=== PATIENT | male | born 1975 | race Caucasian/White ===

== ENCOUNTER 2018-01-01 09:32 | Emergency (ER) | payer OTHER, MEDICAID ==
[~2018-01-01] VITALS: Ht 175.3 cm; Wt 84.1 kg
[~2018-01-01 09:32] MED LIST: AZIT250T13
[2018-01-01 09:43] VITALS: BP 143/92
--- NOTE | 2018-01-01 09:46 | NUR ---
42 Y/O MALE PLACED IN BED C/O TOXIC SUBSTANCE ON HIS RIGHT HAND. POSSIBLE CHEMICAL BURN.
[2018-01-01 10:21] LABS: BASOPHILS % (AUTO) 0.6 % (0.0-2.0); EOSINOPHILS % (AUTO) 1.4 % (0.0-6.0); HEMATOCRIT 44 % (39-51); HEMOGLOBIN 15.5 g/dL (13.5-17.5); LYMPHOCYTES # (AUTO) 1.8 /CMM (0.8-4.8); LYMPHOCYTES % (AUTO) 28.8 % (20.0-44.0); MEAN CORPUSCULAR HGB CONC 35 g/dl (31.0-36.0); MEAN CORPUSCULAR VOLUME 92 fL (80-96); MONOCYTES # (AUTO) 0.7 /CMM (0.1-1.30); MONOCYTES % (AUTO) 10.6 % (2.0-12.0); NEUTROPHILS # (AUTO) 3.7 /CMM (1.8-8.9); NEUTROPHILS % (AUTO) 58.6 % (43.0-81.0); PLATELET COUNT (AUTO) 201 /CMM (150-450); RED BLOOD CELL COUNT(AUTO) 4.84 MIL/uL (4.5-6.0); WHITE BLOOD COUNT (AUTO) 6.3 K/uL (4.3-11.0)
[2018-01-01] MEDS ORDERED: TDAP [DIPH/PERTUSSIS/TET] 0.5 ML VIAL IM ONE ×2 (10:21→10:30)
[2018-01-01 10:27] LABS: CALCIUM, SERUM 8.7 mg/dL (8.5-10.1); CREATININE 0.9 mg/dL (0.6-1.3); POTASSIUM 3.8 mmol/L (3.5-5.1)
--- NOTE | 2018-01-01 11:44 | NUR ---
WOUND CLEANED AND DRESSED. LAB RESULTS BACK. ACI WITH RX GIVEN. PT DISCHARGED HOME,
== END 2018-01-01 11:47 | disposition home or self-care (01) ==
LOC: ER 09:36
DX: T54.2X1A Toxic effect of corrosive acids and acid-like substances, accidental (unintentional), initial encounter (principal); Y92.89 Other specified places as the place of occurrence of the external cause
CPT/HCPCS: 36415; 80048-TC; 85025-TC; 90715; A4606; A6253; Z7610